=== PATIENT | female | born 1975 | race Caucasian/White ===

== ENCOUNTER 2017-02-28 12:46 | Inpatient (IN) | payer OTHER, MEDICAID ==
[~2017-02-28] VITALS: Ht 160 cm; Wt 95.0 kg
[~2017-02-28 12:46] MED LIST: FENT50DI2 TD; ZOLP-158 PO
[2017-02-28] MEDS ORDERED: SODIUM CHLORIDE 0.9% 1,000 ML IV ONE (15:08)
[2017-02-28 17:13] LABS: Basophils # (auto) 0 uL; Basophils % (auto) 0.5 % (0.0-2.0); Eosinophils # (auto) 0 uL; Hematocrit 42.5 % (36.0-46.0); Hemoglobin 14.5 g/dL (12.2-16.2); Monocytes # (auto) 0.3 uL; Monocytes % (auto) 5.2 % (0.0-12.0); Neutrophils # (auto) 2.8 uL
[2017-02-28 17:14] LABS: Lymphocytes # (auto) 1.9 uL; Lymphocytes % (auto) 37.2 % (10.0-50.0); Mean Corpuscular Hemoglobin 26.7 pg (28.0-32.0); Mean Corpuscular Volume 78.7 fL (80.0-100.0); Neutrophils % (auto) 57.1 % (37.0-80.0); Nucleated Red Blood Cells % 0.4 %; Platelet Count (auto) 251 10^3/uL (140-450)
[2017-02-28 17:18] LABS: Alanine Aminotransferase 24 U/L (13-56); Alkaline Phosphatase 113 U/L (45-117); Anion Gap 8 (5-15); Aspartate Aminotransferase 20 U/L (15-37); BUN/Creatinine Ratio 12.5; Bilirubin, Total 0.4 mg/dL (0.2-1.0); Blood Urea Nitrogen 10 mg/dL (7-18); Calcium 9.1 mg/dL (8.5-10.1); Carbon Dioxide 28 mmol/L (21-32); Chloride 103 mmol/L (98-107); GFR African American 102 mL/min; GFR Non-African American 84 mL/min; Glucose 91 mg/dL (74-106); Magnesium 2.3 mg/dL (1.6-2.6); Potassium 4.3 mmol/L (3.5-5.1); Sodium 139 mmol/L (136-145); Total Protein 7.8 g/dL (6.4-8.2)
[2017-02-28] MEDS ORDERED: IOHEXOL 350 MG/ML 100ML IJ ONE (17:39)
[2017-02-28] MEDS ORDERED: ACETAMINOPHEN 500 MG TAB PO PRN (21:00)
[2017-02-28] MEDS ORDERED: ONDANSETRON HCL 4 MG/2 ML VIAL IV PRN (21:00)
[2017-02-28] MEDS ORDERED: AZITHROMYCIN 250 MG TAB PO ONE (21:00)
[2017-02-28 22:15] VITALS: BP 114/85
[2017-02-28 22:30] VITALS: BP 114/85
[2017-02-28] MEDS ORDERED: MECLIZINE HCL 25 MG TAB PO PRN (22:30)
[2017-02-28] MEDS: HYDROcodone-ACET 5/325MG TAB PO PRN (22:42)
[2017-02-28] MEDS: ZOLPIDEM TARTRATE 5 MG TAB PO PRN (23:10)
[2017-03-01] MEDS ORDERED: FENT75DI2 TD (03:49)
[2017-03-01] MEDS ORDERED: OXYC15TA48 PO (03:51)
[2017-03-01] MEDS ORDERED: LIDO5DIS21 TOP (03:51)
[2017-03-01] MEDS ORDERED: ESZO3TAB53 PO (03:51)
[2017-03-01] MEDS ORDERED: PROM25TA5 PO (03:51)
[2017-03-01 06:12] VITALS: BP 95/61
[2017-03-01 08:18] LABS: Basophils # (auto) 0 uL; Eosinophils # (auto) 0 uL; Eosinophils % (auto) 0.1 % (0.0-7.0); Hemoglobin 13.3 g/dL (12.2-16.2); Mean Corpuscular Volume 80.5 fL (80.0-100.0); Monocytes # (auto) 0.3 uL
[2017-03-01 08:20] LABS: Basophils % (auto) 0.8 % (0.0-2.0); Hematocrit 40.8 % (36.0-46.0); Lymphocytes % (auto) 50.4 % (10.0-50.0); Mean Corpuscular Hemoglobin 26.2 pg (28.0-32.0); Mean Corpuscular Hgb Conc. 32.6 g/dL (32.0-36.0); Monocytes % (auto) 6.7 % (0.0-12.0); Neutrophils # (auto) 1.7 uL; Nucleated Red Blood Cells % 0.5 %; Platelet Count (auto) 228 10^3/uL (140-450); Red Blood Cells 5.07 10^6/uL (4.0-5.20); Red Cell Distribution Width 16.2 % (11.8-14.3)
[2017-03-01 08:27] LABS: BUN/Creatinine Ratio 14.5; Calcium 9.2 mg/dL (8.5-10.1); Potassium 4.4 mmol/L (3.5-5.1)
[2017-03-01 09:00] VITALS: BP 97/66
[2017-03-01] MEDS ORDERED: AZITHROMYCIN 250 MG TAB PO SCH (10:00)
[2017-03-01 13:00] VITALS: BP 92/58
[2017-03-01] MEDS ORDERED: cefTRIAXone 1GM/10ml IVPUSH 10 ML IV ONE ×2 (13:15→13:45)
[2017-03-01] MEDS: FUROSEMIDE 20 MG/2 ML VIAL IV ONE ×3 (13:15→18:22)
[2017-03-01] MEDS ORDERED: LIDOCAINE 5% TOPICAL PATCH TOP ONE (13:15)
[2017-03-01] MEDS ORDERED: AZITHROMYCIN 250 MG TAB PO ONE (13:45)
[2017-03-01] MEDS: POTASSIUM CHL 20 Meq TABLET PO ONE ×2 (13:59→22:52)
[2017-03-01] MEDS: HYDROcodone-ACET 5/325MG TAB PO PRN ×3 (13:59→22:44)
[2017-03-01] MEDS ORDERED: fentaNYL 50MCG/HR 50 MCG/HR PAT TD SCH (14:00)
[2017-03-01] MEDS ORDERED: FUROSEMIDE 20 MG/2 ML VIAL ONE (18:14)
[2017-03-01] MEDS ORDERED: NOREPINEPHRINE 8 MG/250ML KIT 250 ML IV ONE (18:47)
[2017-03-01 21:30] VITALS: BP 107/72
[2017-03-01] MEDS: ZOLPIDEM TARTRATE 5 MG TAB PO PRN (22:45)
[2017-03-02] MEDS: HYDROcodone-ACET 5/325MG TAB PO PRN ×4 (04:12→20:51)
[2017-03-02 05:00] VITALS: BP 101/59
[2017-03-02 06:47] LABS: BUN/Creatinine Ratio 15.1; Calcium 8.6 mg/dL (8.5-10.1); Potassium 3.9 mmol/L (3.5-5.1)
[2017-03-02 08:00] VITALS: BP 99/67
[2017-03-02 09:00] VITALS: BP 99/67
[2017-03-02] MEDS: AZITHROMYCIN 250 MG TAB PO SCH (09:24)
[2017-03-02] MEDS: cefTRIAXone 1GM/10ml IVPUSH 10 ML IV SCH (09:24)
[2017-03-02] MEDS ORDERED: FUROSEMIDE 20 MG/2 ML VIAL IV ONE (12:30)
[2017-03-02] MEDS ORDERED: PANTOPRAZOLE 40 MG TAB PO ONE (12:30)
[2017-03-02] MEDS ORDERED: POTASSIUM CHL 20 Meq TABLET PO ONE (12:30)
[2017-03-02 13:00] VITALS: BP 114/86
[2017-03-02 17:00] VITALS: BP 115/74
[2017-03-02] MEDS ORDERED: LIDOCAINE 5% TOPICAL PATCH TOP SCH (20:00)
[2017-03-02 22:00] VITALS: BP 103/63
[2017-03-02] MEDS: ZOLPIDEM TARTRATE 5 MG TAB PO PRN (23:37)
[2017-03-03] MEDS: HYDROcodone-ACET 10/325MG TAB PO PRN ×3 (01:56→11:04)
[2017-03-03 05:00] VITALS: BP 101/68
[2017-03-03 08:00] VITALS: BP 127/64
[2017-03-03 09:00] VITALS: BP 127/64
[2017-03-03] MEDS: cefTRIAXone 1GM/10ml IVPUSH 10 ML IV SCH (09:00)
[2017-03-03] MEDS: AZITHROMYCIN 250 MG TAB PO SCH (09:59)
[2017-03-03] MEDS ORDERED: PANTOPRAZOLE 40 MG TAB PO SCH (10:00)
[2017-03-03 13:00] VITALS: BP_SYST 111; BP_SYST 127; BP_DIAS 71; BP_DIAS 99
[2017-03-03 16:49] VITALS: BP 126/98
[2017-03-03] MEDS ORDERED: LIDOCAINE 5% TOPICAL PATCH TOP SCH (20:00)
== END 2017-03-03 18:00 | disposition home or self-care (01) | DRG 194 ==
LOC: ER 12:46 → TELE 12:47 → TELE-WESTW 22:15 → WEST WING 03-02 02:26
PROVIDERS: ADMIT Nurse Practitioner Family; ATTEND Internal Medicine
DX: J18.9 Pneumonia, unspecified organism (principal); J98.11 Atelectasis; E78.5 Hyperlipidemia, unspecified; R06.89 Other abnormalities of breathing; K21.9 Gastro-esophageal reflux disease without esophagitis; F32.9 Major depressive disorder, single episode, unspecified; F41.9 Anxiety disorder, unspecified; G89.29 Other chronic pain; M06.9 Rheumatoid arthritis, unspecified; R79.1 Abnormal coagulation profile; Z85.820 Personal history of malignant melanoma of skin; Z86.73 Personal history of transient ischemic attack (TIA), and cerebral infarction without residual deficits; Z90.710 Acquired absence of both cervix and uterus; Z90.49 Acquired absence of other specified parts of digestive tract; Z98.51 Tubal ligation status; Z88.1 Allergy status to other antibiotic agents
CPT/HCPCS: 36415; 71045; 71046; 71275; 80048; 80053; 83735; 83880; 84484; 84702; 85025; 85379; 87081; 87400; 93005; 93306; 94761; 96374

== ENCOUNTER 2024-09-18 15:53 | Outpatient (CLI) | payer OTHER, MEDICAID ==
[~2024-09-18 15:53] MED LIST changes: +ESZO3TAB54 PO; -FENT50DI2 TD; +FENT75DI2 TD; +LIDO5DIS21 TOP; +OXYC15TA48 PO; +PROM25TA10 PO; -ZOLP-158 PO; +ZOLP5TAB PO
== END 2024-09-18 17:00 | disposition home or self-care (01) ==
LOC: Rad HDHVI 15:53
PROVIDERS: ATTEND Internal Medicine Cardiovascular Disease
DX: Z01.810 Encounter for preprocedural cardiovascular examination (principal)
CPT/HCPCS: 93306

== ENCOUNTER 2024-10-01 14:20 | Outpatient (CLI) | payer OTHER, MEDICAID ==
[~2024-10-01] VITALS: Ht 160 cm; Wt 91.6 kg
[2024-10-01] MEDS ORDERED: ADENOSINE 90 MG/30 ML INJ IV ONE (14:46)
[2024-10-01] MEDS ORDERED: ADENOSINE 77 MG in GIVE UN-DILUTED 0 ML IV ONE (16:45)
== END 2024-10-01 17:00 | disposition home or self-care (01) ==
LOC: Rad HDHVI 14:20
PROVIDERS: ATTEND Internal Medicine Cardiovascular Disease
DX: Z01.810 Encounter for preprocedural cardiovascular examination (principal); I49.1 Atrial premature depolarization; Z13.6 Encounter for screening for cardiovascular disorders; I10 Essential (primary) hypertension; E78.00 Pure hypercholesterolemia, unspecified
CPT/HCPCS: 78452; 93017; A9500; J0153